=== PATIENT | female | born 1970 | race Caucasian/White ===

== ENCOUNTER 2017-01-14 19:52 | Emergency (ER) | payer MEDICAID, OTHER ==
[~2017-01-14] VITALS: Ht 170.2 cm; Wt 79.0 kg
[~2017-01-14 19:52] MED LIST: ASCO500T8 PO; GINK60TA PO; HYDR-3241 PO; IBUP-1222 PO; LEVO50TA PO; NICO1PAT5 TD; PARS1TAB PO; VITAMIN D PO
[2017-01-14] MEDS ORDERED: ASPIRIN 81 MG TABLET CHEW ONE (20:27)
[2017-01-14] MEDS ORDERED: ASPIRIN 81 MG TABLET CHEW PO ONE (20:30)
[2017-01-14] MEDS ORDERED: KETOROLAC 30 MG/1 ML ONE (20:56)
[2017-01-14] MEDS ORDERED: KETOROLAC 30 MG/1 ML IM ONE (21:00)
[2017-01-14 21:24] LABS: HEMOGLOBIN 15.2 g/dL (11.7-16.4)
[2017-01-14 21:32] VITALS: BP 114/68
[2017-01-14 21:32] LABS: BLOOD UREA NITROGEN 11 mg/dL (7-18)
[2017-01-14 21:37] LABS: ASPARTATE AMINO TRANSFERASE 14 U/L (15-37)
[2017-01-14 21:38] LABS: IS PT STATUS REG ER OR PRE ER? YES
== END 2017-01-14 22:10 | disposition home or self-care (01) ==
LOC: ED 21:25
DX: M94.0 Chondrocostal junction syndrome [Tietze] (principal); R07.89 Other chest pain; E03.9 Hypothyroidism, unspecified; G43.909 Migraine, unspecified, not intractable, without status migrainosus; Z90.49 Acquired absence of other specified parts of digestive tract; Z90.710 Acquired absence of both cervix and uterus
CPT/HCPCS: 36415; 71010; 80053; 84484; 85025; 93005; 96372; 99285; J1885

== ENCOUNTER 2017-05-13 22:29 | Inpatient (IN) | payer MEDICAID, OTHER ==
[~2017-05-13] VITALS: Ht 170.2 cm; Wt 76.6 kg
[2017-05-13] MEDS ORDERED: ASPIRIN 81 MG TABLET CHEW PO ONE (23:00)
[2017-05-13] MEDS ORDERED: SODIUM CHLORIDE FLUSH 10ML SYR IVF ONE (23:00)
[2017-05-13] MEDS ORDERED: MORPHINE SULFATE 4 MG/ML, 1ML IVPush ONE (23:00)
[2017-05-13] MEDS ORDERED: SODIUM CHLORIDE 0.9%, 500ML IVBOLUS ONE (23:00)
[2017-05-13] MEDS ORDERED: MORPHINE SULFATE 4 MG/ML, 1ML ONE (23:16)
[2017-05-13] MEDS ORDERED: ASPIRIN 81 MG TABLET CHEW ONE (23:16)
[2017-05-13] MEDS ORDERED: ONDANSETRON 2MG/ML, 2ML ONE (23:19)
[2017-05-13] MEDS ORDERED: ONDANSETRON 2MG/ML, 2ML IVPush ONE (23:30)
[2017-05-13 23:45] LABS: BLOOD UREA NITROGEN 15 mg/dL (7-18)
[2017-05-13 23:57] LABS: IS PT STATUS REG ER OR PRE ER? YES
[2017-05-14] MEDS ORDERED: MORPHINE SULFATE 4 MG/ML, 1ML ONE (00:05)
[2017-05-14] MEDS ORDERED: MORPHINE SULFATE 4 MG/ML, 1ML IVPush ONE (00:30)
[2017-05-14] MEDS ORDERED: SULFAMETH./TRIMETHOPRIM DS 800MG/160MG TABLET ONE (00:44)
[2017-05-14] MEDS ORDERED: ONDANSETRON 2MG/ML, 2ML ONE (00:58)
[2017-05-14] MEDS ORDERED: SULFAMETH./TRIMETHOPRIM DS 800MG/160MG TABLET PO ONE (01:00)
[2017-05-14] MEDS ORDERED: SODIUM CHLORIDE 0.9% 1,000 ML IV SCH (01:33)
[2017-05-14] MEDS ORDERED: ACETAMINOPHEN 325 MG TABLET PO PRN (02:00)
[2017-05-14] MEDS ORDERED: ONDANSETRON 2MG/ML, 2ML IVPush PRN (02:00)
[2017-05-14] MEDS ORDERED: NITROGLYCERIN 0.4 MG BOTTLE (25 TABS) SL PRN (02:00)
[2017-05-14] MEDS ORDERED: TEMAZEPAM 15 MG CAPSULE PO PRN (02:00)
[2017-05-14] MEDS ORDERED: morphine SULFATE 10 MG/ML, 1ML IVPush PRN (02:00)
[2017-05-14] MEDS ORDERED: HEPARIN 5,000 UNITS/ML, 1ML ONE (02:25)
[2017-05-14] MEDS ORDERED: NITROGLYCERIN SINGLE TAB 0.4 MG SL ONE (03:05)
[2017-05-14] MEDS: HEPARIN 5,000 UNITS/ML, 1ML SQ SCH ×3 (03:17→17:40)
[2017-05-14 06:34] LABS: IS PT STATUS REG ER OR PRE ER? YES
[2017-05-14] MEDS ORDERED: SULFAMETH./TRIMETHOPRIM DS 800MG/160MG TABLET PO SCH (09:00)
[2017-05-14 11:39] LABS: IS PT STATUS REG ER OR PRE ER? NO
[2017-05-14] MEDS: CEFTRIAXONE PMX 1GM/50ML 50 ML IV SCH (12:13)
[2017-05-14] MEDS ORDERED: REGADENOSON 0.4 MG/5 ML SYRINGE ONE (13:26)
[2017-05-14] MEDS ORDERED: SODIUM CHLORIDE 0.9%, 500ML IVBOLUS ONE (16:30)
[2017-05-14] MEDS ORDERED: KETOROLAC 30 MG/1 ML IVPush SCH (17:30)
[2017-05-14] MEDS: METHOCARBAMOL 500 MG TABLET PO SCH ×2 (17:48→22:59)
[2017-05-14 19:54] LABS: DAU SCREEN DISCLAIMER
[2017-05-14 20:50] VITALS: BP 100/63
[2017-05-15] MEDS: HEPARIN 5,000 UNITS/ML, 1ML SQ SCH ×3 (02:00→14:04)
[2017-05-15 02:14] VITALS: BP 122/54
[2017-05-15] MEDS: SODIUM CHLORIDE 0.9% 1,000 ML IV SCH ×4 (03:00→23:38)
[2017-05-15 06:18] LABS: BLOOD UREA NITROGEN 11 mg/dL (7-18)
[2017-05-15] MEDS: METHOCARBAMOL 500 MG TABLET PO SCH ×4 (06:56→21:38)
[2017-05-15 07:32] VITALS: BP 107/69
[2017-05-15] MEDS ORDERED: VANCOMYCIN PMX 1GM/200ML 200 ML IVPB SCH (10:30)
[2017-05-15] MEDS: CEFTRIAXONE PMX 1GM/50ML 50 ML IV SCH (11:49)
[2017-05-15 14:18] VITALS: BP 110/72
[2017-05-15] MEDS: CEFDINIR 300 MG CAPSULE PO SCH (16:08)
[2017-05-15 20:00] VITALS: BP 124/64
[2017-05-15] MEDS: KETOROLAC 30 MG/1 ML IVPush PRN (23:38)
[2017-05-16] MEDS: HEPARIN 5,000 UNITS/ML, 1ML SQ SCH ×3 (00:57→18:00)
[2017-05-16 03:05] VITALS: BP 118/63
[2017-05-16] MEDS: CEFDINIR 300 MG CAPSULE PO SCH ×2 (03:11→18:10)
[2017-05-16] MEDS: METHOCARBAMOL 500 MG TABLET PO SCH ×2 (06:42→11:33)
[2017-05-16] MEDS: SODIUM CHLORIDE 0.9% 1,000 ML IV SCH ×2 (06:47→11:33)
[2017-05-16] MEDS ORDERED: SODIUM CHLORIDE 0.9% 1,000 ML IV SCH (07:00)
[2017-05-16 08:39] VITALS: BP 124/71
[2017-05-16] MEDS: KETOROLAC 30 MG/1 ML IVPush PRN ×3 (08:47→22:45)
[2017-05-16] MEDS ORDERED: CEFAZOLIN PMX 1GM/50ML 0 ML ONE (13:22)
[2017-05-16] MEDS ORDERED: CEFAZOLIN 1,000 MG ONE (13:22)
[2017-05-16] MEDS ORDERED: MIDAZOLAM 1 MG/ML, 5ML ONE (13:22)
[2017-05-16] MEDS ORDERED: FENTANYL PF 100 MCG/2ML ONE (13:22)
[2017-05-16] MEDS ORDERED: LIDOCAINE 2%, 20ML ONE (13:22)
[2017-05-16] MEDS ORDERED: VANCOMYCIN PMX 1GM/200ML 200 ML ONE (13:49)
[2017-05-16] MEDS ORDERED: VANCOMYCIN 500 MG ONE (13:49)
[2017-05-16] MEDS ORDERED: METHOCARBAMOL 500 MG TABLET PO PRN (14:30)
[2017-05-16] MEDS ORDERED: ACETAMINOPHEN 325 MG TABLET PO PRN (15:00)
[2017-05-16 15:15] VITALS: BP 127/83
[2017-05-16] MEDS ORDERED: VANCOMYCIN PMX 1GM/200ML 200 ML IVPB SCH (15:30)
[2017-05-16 19:37] VITALS: BP 126/82
[2017-05-16] MEDS: SODIUM CHLORIDE FLUSH 10ML SYR IVF SCH (22:45)
[2017-05-17] MEDS ORDERED: SODIUM CHLORIDE 0.9% 1,000 ML IV SCH (01:33)
[2017-05-17 02:32] VITALS: BP 180/88
[2017-05-17] MEDS: HEPARIN 5,000 UNITS/ML, 1ML SQ SCH (08:00)
[2017-05-17] MEDS: SODIUM CHLORIDE FLUSH 10ML SYR IVF SCH (09:00)
[2017-05-17 09:06] VITALS: BP 119/76
[2017-05-17] MEDS: CEFDINIR 300 MG CAPSULE PO SCH (09:33)
== END 2017-05-17 11:44 | disposition home or self-care (01) | DRG 243 ==
LOC: ED 05-14 00:59 → EDIP 05-14 01:21 → 5SO 05-14 08:06
PROVIDERS: ADMIT Internal Medicine; ATTEND Internal Medicine
PROC: 0JH606Z Insertion of Pacemaker, Dual Chamber into Chest Subcutaneous Tissue and Fascia, Open Approach (ICD-10-PCS; principal; 2017-05-16)
PROC: 02H63JZ Insertion of Pacemaker Lead into Right Atrium, Percutaneous Approach (ICD-10-PCS; 2017-05-16)
PROC: 02HK3JZ Insertion of Pacemaker Lead into Right Ventricle, Percutaneous Approach (ICD-10-PCS; 2017-05-16)
DX: R00.1 Bradycardia, unspecified (principal); N39.0 Urinary tract infection, site not specified; E03.9 Hypothyroidism, unspecified; I10 Essential (primary) hypertension; F17.210 Nicotine dependence, cigarettes, uncomplicated; B96.20 Unspecified Escherichia coli [E. coli] as the cause of diseases classified elsewhere; R07.89 Other chest pain; E66.9 Obesity, unspecified; M25.50 Pain in unspecified joint; Z68.26 Body mass index [BMI] 26.0-26.9, adult; Z88.0 Allergy status to penicillin; Z88.8 Allergy status to other drugs, medicaments and biological substances; Z88.6 Allergy status to analgesic agent; Z91.040 Latex allergy status; Z83.3 Family history of diabetes mellitus; Z82.49 Family history of ischemic heart disease and other diseases of the circulatory system; Z82.5 Family history of asthma and other chronic lower respiratory diseases; Z71.6 Tobacco abuse counseling
CPT/HCPCS: 33208; 36415; 71010; 78452; 80048; 80061; 80307; 81001; 82040; 82533; 83735; 84100; 84439; 84443; 84484; 85025; 85610; 85730; 87077; 87086; 87186; 93005; 93017; 93306; 96361; 96374; 96375; 96376; 99156; 99157; C1779; C1785; C1892; J0690; J0696; J1644; J1885; J2250; J2405; J2785; J3010; J3370; J3490; A9502; C9898; J7030; J7040

== ENCOUNTER 2017-12-08 23:41 | Emergency (ER) | payer OTHER ==
[~2017-12-08] VITALS: Ht 170.2 cm; Wt 77.2 kg
[~2017-12-08 23:41] MED LIST changes: +NICO-487 TD; -NICO1PAT5 TD
[2017-12-09] MEDS ORDERED: ONDANSETRON 2MG/ML, 2ML ONE ×2 (00:08→03:13)
[2017-12-09] MEDS ORDERED: MORPHINE SULFATE 4 MG/ML, 1ML ONE (00:08)
[2017-12-09] MEDS ORDERED: ASPIRIN 81 MG TABLET CHEW ONE (00:08)
[2017-12-09 00:16] LABS: BASOPHILS % (AUTO) 2 % (0-1); EOSINOPHILS # (AUTO) 0.14 x10^3/uL (0-0.4); EOSINOPHILS % (AUTO) 2 % (1-7); LYMPHOCYTES # (AUTO) 3.03 x10^3/uL (1-3.4); LYMPHOCYTES % (AUTO) 44 % (22-44); MD NO; MEAN CORPUSCULAR HEMOGLOBIN 32.3 pg (27.0-34.8); MEAN CORPUSCULAR VOLUME 95.1 fL (80-100); MEAN PLATELET VOLUME 7.2 fL (7.4-10.4); MONOCYTES # (AUTO) 0.39 x10^3/uL (0.2-0.8); MONOCYTES % (AUTO) 6 % (2-9); NEUTROPHILS # (AUTO) 3.31 x10^3/uL (1.8-6.8); NEUTROPHILS % (AUTO) 48 % (42-75); PLATELET COUNT 269 x10^3/uL (130-400); RED BLOOD COUNT 4.55 x10^6/uL (3.82-5.3); RED CELL DISTRIBUTION WIDTH 12.8 % (9.6-15.2)
[2017-12-09 00:28] LABS: D-DIMER 0.48 ug/mlFEU (0.00-0.52); INTERNATIONAL NORMALIZED RATIO 0.91 (0.93-1.1); PROTHROMBIN TIME 9.4 Seconds (9.6-11.5)
[2017-12-09 00:30] LABS: ALBUMIN 3.6 g/dL (3.4-5.0); ANION GAP 8 mmol/L (5-15); CALCIUM 8.6 mg/dL (8.5-10.1); CHLORIDE 112 mmol/L (98-107)
[2017-12-09] MEDS ORDERED: MORPHINE SULFATE 4 MG/ML, 1ML IVPush PRN (00:30)
[2017-12-09] MEDS ORDERED: SODIUM CHLORIDE FLUSH 10ML SYR IVF ONE (00:30)
[2017-12-09] MEDS ORDERED: ASPIRIN 81 MG TABLET CHEW PO ONE (00:30)
[2017-12-09] MEDS ORDERED: ONDANSETRON 2MG/ML, 2ML IVPush ONE ×2 (00:30→03:30)
[2017-12-09 00:35] LABS: ALANINE AMINOTRANSFERASE 27 U/L (12-78); ALKALINE PHOSPHATASE 67 U/L (45-117); BILIRUBIN,TOTAL 0.2 mg/dL (0.2-1.0); CREATININE 1.19 mg/dL (0.55-1.02); TOTAL PROTEIN 6.6 g/dL (6.4-8.2); TROPONIN I < 0.015 ng/mL (0.000-0.045)
[2017-12-09] MEDS ORDERED: MAALOX/HYOSCYAMINE/LIDOCAINE 45 ML BTL ONE (03:13)
[2017-12-09 03:28] LABS: TROPONIN I < 0.015 ng/mL (0.000-0.045)
[2017-12-09] MEDS ORDERED: MAALOX/HYOSCYAMINE/LIDOCAINE 45 ML BTL PO ONE (03:30)
[2017-12-09 03:57] VITALS: BP 122/60
== END 2017-12-09 04:05 | disposition home or self-care (01) ==
LOC: ED 23:59
DX: R07.2 Precordial pain (principal); R07.89 Other chest pain; Z88.0 Allergy status to penicillin; Z88.6 Allergy status to analgesic agent; Z88.8 Allergy status to other drugs, medicaments and biological substances; Z90.710 Acquired absence of both cervix and uterus; Z90.49 Acquired absence of other specified parts of digestive tract; E03.9 Hypothyroidism, unspecified; G43.909 Migraine, unspecified, not intractable, without status migrainosus; Z95.0 Presence of cardiac pacemaker; F17.210 Nicotine dependence, cigarettes, uncomplicated
CPT/HCPCS: 36415; 71045; 80053; 84484; 85025; 85379; 85610; 85730; 93005; 96374; 96375; 96376; 99285; J2405

== ENCOUNTER 2018-03-18 19:45 | Emergency (ER) | payer OTHER ==
[~2018-03-18] VITALS: Ht 170.2 cm; Wt 75.0 kg
[2018-03-18] MEDS ORDERED: ONDANSETRON ODT 4 MG PO ONE (20:00)
[2018-03-18] MEDS ORDERED: SODIUM CHLORIDE FLUSH 10ML SYR IVF ONE (20:00)
[2018-03-18] MEDS ORDERED: ONDANSETRON ODT 4 MG ONE (20:15)
[2018-03-18 20:31] LABS: CULTURE INDICATED? YES; MICROSCOPIC AUTO
[2018-03-18 20:55] LABS: BASOPHILS # (AUTO) 0.07 x10^3/uL (0-0.1); BASOPHILS % (AUTO) 1 % (0-1); EOSINOPHILS # (AUTO) 0.18 x10^3/uL (0-0.4); EOSINOPHILS % (AUTO) 2 % (1-7); LYMPHOCYTES # (AUTO) 3.19 x10^3/uL (1-3.4); LYMPHOCYTES % (AUTO) 37 % (22-44); MD NO; MEAN CORPUSCULAR HEMOGLOBIN 32.4 pg (27.0-34.8); MEAN CORPUSCULAR HGB CONC 34.2 g/dL (32.4-35.8); MEAN CORPUSCULAR VOLUME 94.9 fL (80-100); MEAN PLATELET VOLUME 7.4 fL (7.4-10.4); MONOCYTES # (AUTO) 0.54 x10^3/uL (0.2-0.8); MONOCYTES % (AUTO) 6 % (2-9); NEUTROPHILS # (AUTO) 4.67 x10^3/uL (1.8-6.8); NEUTROPHILS % (AUTO) 54 % (42-75); PLATELET COUNT 273 x10^3/uL (130-400); RED CELL DISTRIBUTION WIDTH 13.1 % (9.6-15.2)
[2018-03-18 21:01] LABS: ALANINE AMINOTRANSFERASE 29 U/L (12-78); ANION GAP 7 mmol/L (5-15); CALCIUM 9.1 mg/dL (8.5-10.1); CHLORIDE 111 mmol/L (98-107)
[2018-03-18 21:06] LABS: ALKALINE PHOSPHATASE 69 U/L (45-117); BILIRUBIN,TOTAL 0.3 mg/dL (0.2-1.0); TOTAL PROTEIN 7.1 g/dL (6.4-8.2)
[2018-03-18 21:15] LABS: TROPONIN I < 0.015 ng/mL (0.000-0.045)
[2018-03-18] MEDS ORDERED: MORPHINE SULFATE 4 MG/ML, 1ML ONE (21:47)
[2018-03-18] MEDS ORDERED: OMNIPAQUE 350 MG/ML, 100ML BOTTLE ONE (21:59)
[2018-03-18] MEDS ORDERED: MORPHINE SULFATE 4 MG/ML, 1ML IVPush PRN (22:00)
[2018-03-18] MEDS ORDERED: MAALOX/HYOSCYAMINE/LIDOCAINE 45 ML BTL ONE (22:42)
[2018-03-18 22:44] VITALS: BP 135/96
[2018-03-18] MEDS ORDERED: MAALOX/HYOSCYAMINE/LIDOCAINE 45 ML BTL PO ONE (23:00)
== END 2018-03-18 23:09 | disposition home or self-care (01) ==
LOC: ED 22:04
DX: K29.00 Acute gastritis without bleeding (principal); E03.9 Hypothyroidism, unspecified; G43.909 Migraine, unspecified, not intractable, without status migrainosus; Z90.710 Acquired absence of both cervix and uterus; Z90.49 Acquired absence of other specified parts of digestive tract; Z95.0 Presence of cardiac pacemaker
CPT/HCPCS: 36415; 74022; 74177; 80053; 81001; 83690; 84484; 84703; 85025; 86677; 87086; 93005; 96374; 99285; Q0162; Q9967; 87077; 87106

== ENCOUNTER 2018-07-22 07:59 | Emergency (ER) | payer SELFPAY ==
[~2018-07-22] VITALS: Ht 170.2 cm; Wt 77.5 kg
[2018-07-22] MEDS ORDERED: ASPIRIN 81 MG TABLET CHEW PO ONE (08:30)
[2018-07-22] MEDS ORDERED: SODIUM CHLORIDE FLUSH 10ML SYR IVF ONE (08:30)
[2018-07-22] MEDS ORDERED: KETOROLAC 30 MG/1 ML IVPush ONE (08:30)
[2018-07-22] MEDS ORDERED: ALBUTEROL/IPRATROPIUM 2.5MG/0.5MG, 3 ML NPPB ONE (08:30)
[2018-07-22] MEDS ORDERED: ALBUTEROL/IPRATROPIUM 2.5MG/0.5MG, 3 ML ONE (08:35)
[2018-07-22] MEDS ORDERED: ASPIRIN 81 MG TABLET EC ONE (08:57)
[2018-07-22] MEDS ORDERED: KETOROLAC 30 MG/1 ML ONE (08:57)
[2018-07-22] MEDS ORDERED: ASPIRIN 81 MG TABLET CHEW ONE (09:12)
[2018-07-22 09:18] LABS: BASOPHILS # (AUTO) 0.04 x10^3/uL (0-0.1); BASOPHILS % (AUTO) 1 % (0-1); EOSINOPHILS # (AUTO) 0.25 x10^3/uL (0-0.4); EOSINOPHILS % (AUTO) 3 % (1-7); LYMPHOCYTES % (AUTO) 29 % (22-44); MD NO; MEAN CORPUSCULAR HEMOGLOBIN 32.3 pg (27.0-34.8); MEAN CORPUSCULAR HGB CONC 34.1 g/dL (32.4-35.8); MEAN CORPUSCULAR VOLUME 94.7 fL (80-100); MEAN PLATELET VOLUME 7.1 fL (7.4-10.4); MONOCYTES # (AUTO) 0.55 x10^3/uL (0.2-0.8); MONOCYTES % (AUTO) 6 % (2-9); NEUTROPHILS % (AUTO) 63 % (42-75); PLATELET COUNT 252 x10^3/uL (130-400); RED BLOOD COUNT 4.83 x10^6/uL (3.82-5.3); RED CELL DISTRIBUTION WIDTH 12.9 % (9.6-15.2)
[2018-07-22 09:34] LABS: ALBUMIN 3.6 g/dL (3.4-5.0); ANION GAP 7 mmol/L (5-15); CALCIUM 8.8 mg/dL (8.5-10.1); CHLORIDE 113 mmol/L (98-107); CREATININE 1.05 mg/dL (0.55-1.02)
[2018-07-22 09:39] LABS: TROPONIN I < 0.015 ng/mL (0.000-0.045)
[2018-07-22 12:15] VITALS: BP 130/76
== END 2018-07-22 12:18 | disposition home or self-care (01) ==
LOC: ED 10:14
DX: R07.89 Other chest pain (principal); J06.9 Acute upper respiratory infection, unspecified; E03.9 Hypothyroidism, unspecified; Z90.49 Acquired absence of other specified parts of digestive tract; Z90.710 Acquired absence of both cervix and uterus; F17.200 Nicotine dependence, unspecified, uncomplicated
CPT/HCPCS: 36415; 71046; 71275; 80048; 82040; 83880; 84484; 85025; 85379; 93005; 94640; 96374; 99285; J1885; J7620

== ENCOUNTER 2019-03-17 14:40 | Outpatient (CLI) | payer OTHER | END 2019-03-17 23:59 | disposition home or self-care (01) | LOC: RAD 14:40 | PROVIDERS: ATTEND Radiology Diagnostic Radiology | DX: S39.012D Strain of muscle, fascia and tendon of lower back, subsequent encounter (principal); M47.816 Spondylosis without myelopathy or radiculopathy, lumbar region; X58.XXXD Exposure to other specified factors, subsequent encounter | CPT/HCPCS: 72148 ==